=== PATIENT | female | born 1995 | race African-American/Black ===

== ENCOUNTER 2017-03-19 11:37 | Emergency (ER) | payer OTHER ==
[~2017-03-19] VITALS: Ht 170.2 cm; Wt 150.0 kg
[2017-03-19 11:41] VITALS: BP 168/101; PULSE 101; RESP 14; TEMP 98.7; O2SAT 99
--- NOTE | 2017-03-19 13:50 | PD ---
HPI Chief Complaint: Headache Time Seen by Provider: 13:15 Travel History International Travel<30 days: No Contact w/Intl Traveler<30days: No Traveled to known affect area: No History of Present Illness HPI The patient was seen and examined in the presence of the nurse. This patient complains of muscular pain center back and neck. She has elevated blood pressures. Currently 168/101. She does not have a family physician or take any medications. Severity is moderate. No alleviating factors. PFSH Past Medical History Medical History: Denies Significant Hx Cardiovascular Problems: Yes (HTN) Diminished Hearing: No Tetanus Vaccination: Unknown Influenza Vaccination: No ?: Not LMP: 03/09/17 Past Surgical History Surgical History: No Previous Surgery Social History Alcohol Use: No Tobacco Use: No Substance Use: No Review of Systems General / Constitutional: No: Fever Cardiovascular: No: Chest Pain or Discomfort Respiratory: No: Cough Gastrointestinal: No: Abdominal Pain Physical Exam Narrative GASTROINTESTINAL: Abdomen soft, non-tender, nondistended. Positive bowel sounds. No hepato-splenomegaly, or palpable masses. No guarding. SKIN: Focused skin assessment reveals no rash or ulcers. Skin is warm and dry. Palpation shows no induration or nodules. NEUROLOGICAL: Awake and alert. Pupils are equal round and reactive. Motor and sensory grossly within normal limits. Five out of 5 muscle strength in all muscle groups. Normal speech. Back: No midline tenderness. There is some muscular tenderness in the trapezius region Data Data Last Documented VS Vital Signs Date Time Temp Pulse Resp B/P (MAP) Pulse Ox O2 Delivery O2 Flow Rate FiO2 03/19/17 11:41 98.7 101 14 168/101 (123) 99 MDM Medical Decision Making Medical Screen Exam Complete: Yes Emergency Medical Condition: Yes Medical Record Reviewed: Yes Differential Diagnosis Myalgia, elevated blood pressure, accelerated hypertension Narrative Course I have reviewed the patient's electronic medical record. Patient is advised to check and record her blood pressure daily Follow-up with primary care physician She has some vague myalgias and I discussed options but she will like to try some anti-inflammatories which are [id number] Would benefit from weight loss Diagnosis Primary Impression: Myalgia Additional Impression: Accelerated hypertension Additional Instructions: The patient was advised to follow up with their physician and return if they worsen. Check and record blood pressure daily Med/Other Pt SpecificInfo: Other Disposition: DISCHARGE HOME Condition: Stable Arpit Del Rio MD Mar 19, 2017 13:50
[2017-03-19 14:31] VITALS: BP 114/57; PULSE 78; RESP 18; O2SAT 99
== END 2017-03-19 14:35 | disposition home or self-care (01) ==
LOC: NEPE 11:37
DX: M79.1 Myalgia (principal); I10 Essential (primary) hypertension
CPT/HCPCS: 99282